=== PATIENT | female | born 1945 | race Caucasian/White ===

== ENCOUNTER 2019-05-12 10:05 | Observation (INO) ==
[~2019-05-12 10:05] MED LIST: Total Joint Mixture (50 ml) IR ONE
[2019-05-12] MEDS ORDERED: Ringers Solution, Lactated 1,000 ML IVC SCH (10:30)
[2019-05-12] MEDS ORDERED: ceFAZolin 2,000 MG in Water for inj. (sterile) 20 ML IVP ONE (10:45)
[2019-05-12] MEDS ORDERED: Acetaminophen IV 1,000 MG/100 ML INFUS..BTL IVPB ONE (11:19)
[2019-05-12] MEDS ORDERED: Ondansetron 4 MG/2 ML VIAL IVP ONE (11:39)
[2019-05-12] MEDS ORDERED: *HR* HYDROmorphone (PF) 1 MG/ML SYRINGE IVP PRN (11:39)
[2019-05-12] MEDS ORDERED: Ethanol\\Acetic Acid\\Na Ace\\Ben 1,000 ML IRRIG.SOLN IR ONE (12:38)
[2019-05-12] MEDS ORDERED: *HR* Propofol 200 MG/20 ML VIAL IVP ONE (12:42)
[2019-05-12] MEDS ORDERED: *HR* Midazolam HCl 2 MG/2 ML VIAL ONE ×2 (12:42→12:48)
[2019-05-12] MEDS ORDERED: *HR* FentaNYL (PF) 100 MCG/2 ML VIAL ONE ×2 (12:42→13:54)
[2019-05-12] MEDS ORDERED: Ondansetron 4 MG/2 ML VIAL ONE (12:44)
[2019-05-12] MEDS ORDERED: Dexamethasone 4 MG/ML VIAL ONE (12:44)
[2019-05-12] MEDS ORDERED: Lidocaine -MPF 2% 2 ML VIAL ONE (12:44)
[2019-05-12] MEDS ORDERED: Ropivacaine/PF 0.5% 30 ML VIAL ONE (12:48)
[2019-05-12] MEDS ORDERED: Sennosides 8.6 MG TABLET PO PRN (15:38)
[2019-05-12] MEDS ORDERED: Dexamethasone OPTH Drop 5 ML BOTTLE BOTH EYES PRN (15:38)
[2019-05-12] MEDS ORDERED: *HR* Promethazine 25 MG/ML VIAL IVP PRN (15:38)
[2019-05-12] MEDS ORDERED: Naloxone 0.4 MG/ML INJ IVP PRN (15:38)
[2019-05-12] MEDS ORDERED: MOM Conc 10 ML UD.LIQ PO PRN (15:38)
[2019-05-12] MEDS ORDERED: Ondansetron 4 MG/2 ML VIAL IVP PRN (15:38)
[2019-05-12] MEDS: Acetaminophen 325 MG TABLET PO PRN (15:51)
[2019-05-12] MEDS: *HR* OxyCODONE Immed Rel 5 MG TABLET PO PRN ×2 (15:51→21:34)
[2019-05-12 16:43] LABS: Hematocrit 33.7 % (35.3-44.9); Hemoglobin 11.3 g/dL (11.5-15.4)
[2019-05-12] MEDS: Ascorbic Acid 500 MG TABLET PO SCH (16:52)
[2019-05-12] MEDS: ceFAZolin 2,000 MG in 0.9 % Sodium Chloride 100 ML IVPB SCH ×2 (16:53→23:56)
[2019-05-12] MEDS: HYDROcodone BIT/Homatropine 5 MG TABLET PO PRN (17:45)
[2019-05-12] MEDS: traZODone 50 MG TABLET PO SCH (19:47)
[2019-05-12] MEDS: BuPROPion SR (12 HR) 150 MG TABLET PO SCH (19:47)
[2019-05-12] MEDS: QUEtiapine Fumarate 100 MG TABLET PO SCH (19:47)
[2019-05-12] MEDS: Ringers Solution, Lactated 1,000 ML IVC SCH (21:14)
[2019-05-13 01:31] LABS: Basophils % 0.1 %; Immature Granulocytes % 0.5 % (0-4); Lymphocytes # 0.8 K/mcL (0.6-4.6); Lymphocytes % 9.7 %; Mean Corpuscular HGB Conc 33.3 g/dL (31.6-35.5); Mean Corpuscular Hemoglobin 31.5 pg (28.0-33.3); Mean Corpuscular Volume 94.6 fL (83.0-100.0); Mean Platelet Volume 9.8 fL (9.4-12.4); Monocytes # 0.3 K/mcL (0.0-1.3); Monocytes % 3.4 %; Neutrophils # 7.2 K/mcL (1.6-8.9); Platelet Count 191 K/mcL (140-400); Red Blood Count 3.17 M/mcL (3.82-4.97); Segmented Neutrophils % 86.3 %; White Blood Count 8.3 K/mcL (4.3-11.1)
[2019-05-13 01:49] LABS: Calcium 8.2 mg/dL (8.6-10.3)
[2019-05-13] MEDS: *HR* OxyCODONE Immed Rel 5 MG TABLET PO PRN ×5 (02:49→21:55)
[2019-05-13] MEDS: HYDROcodone BIT/Homatropine 5 MG TABLET PO PRN ×4 (06:34→19:28)
[2019-05-13] MEDS: Ascorbic Acid 500 MG TABLET PO SCH ×2 (08:32→15:42)
[2019-05-13] MEDS: BuPROPion SR (12 HR) 150 MG TABLET PO SCH ×2 (08:32→20:08)
[2019-05-13] MEDS: Acetaminophen 325 MG TABLET PO PRN ×2 (08:32→14:54)
[2019-05-13] MEDS: Venlafaxine XR (24 HR) 150 MG CAP.ER.24H PO SCH (08:33)
[2019-05-13] MEDS: amLODIPine 5 MG TABLET PO SCH (08:33)
[2019-05-13] MEDS: Multivit/Ca/Min/Fe/FA 1 TAB TABLET PO SCH (08:33)
[2019-05-13] MEDS ORDERED: KRILL OIL 500 MG PO SCH (09:00)
[2019-05-13] MEDS ORDERED: NON-FORMULARY MEDICATION 1 EACH EACH (Multivit-Min/Fa/Lycopen/Lutein [Adults 50+ Multivita PO SCH (09:00)
[2019-05-13] MEDS: Fluticasone Propionate Nasal 50 MCG/SPRAY BOTTLE NS SCH (11:20)
[2019-05-13] MEDS: Aspirin Enteric Coated 81 MG Tablet PO SCH (15:43)
[2019-05-13] MEDS: QUEtiapine Fumarate 100 MG TABLET PO SCH (20:08)
[2019-05-13] MEDS: traZODone 50 MG TABLET PO SCH (20:08)
[2019-05-14 02:51] LABS: Basophils % 0.4 %; Eosinophils # 0.2 K/mcL (0.0-0.6); Eosinophils % 2.4 %; Hemoglobin 8.7 g/dL (11.5-15.4); Immature Granulocytes % 0.3 % (0-4); Lymphocytes # 2.1 K/mcL (0.6-4.6); Lymphocytes % 30.9 %; Mean Corpuscular HGB Conc 33.5 g/dL (31.6-35.5); Mean Corpuscular Hemoglobin 31.4 pg (28.0-33.3); Mean Corpuscular Volume 93.9 fL (83.0-100.0); Mean Platelet Volume 9.6 fL (9.4-12.4); Monocytes # 0.7 K/mcL (0.0-1.3); Monocytes % 10.3 %; Neutrophils # 3.7 K/mcL (1.6-8.9); Platelet Count 140 K/mcL (140-400); Red Blood Count 2.77 M/mcL (3.82-4.97); Segmented Neutrophils % 55.7 %; White Blood Count 6.7 K/mcL (4.3-11.1)
[2019-05-14 02:58] LABS: Calcium 8.1 mg/dL (8.6-10.3); Potassium 3.9 mEq/L (3.5-5.1)
[2019-05-14] MEDS: *HR* OxyCODONE Immed Rel 5 MG TABLET PO PRN ×4 (04:52→19:49)
[2019-05-14] MEDS: BuPROPion SR (12 HR) 150 MG TABLET PO SCH ×2 (07:41→19:49)
[2019-05-14] MEDS: Multivit/Ca/Min/Fe/FA 1 TAB TABLET PO SCH (07:42)
[2019-05-14] MEDS: HYDROcodone BIT/Homatropine 5 MG TABLET PO PRN ×3 (07:42→22:26)
[2019-05-14] MEDS: Venlafaxine XR (24 HR) 150 MG CAP.ER.24H PO SCH (07:42)
[2019-05-14] MEDS: Ascorbic Acid 500 MG TABLET PO SCH ×2 (07:42→15:26)
[2019-05-14] MEDS: amLODIPine 5 MG TABLET PO SCH (07:42)
[2019-05-14] MEDS: Aspirin Enteric Coated 81 MG Tablet PO SCH (07:42)
[2019-05-14] MEDS: Fluticasone Propionate Nasal 50 MCG/SPRAY BOTTLE NS SCH (11:20)
[2019-05-14] MEDS: traZODone 50 MG TABLET PO SCH (19:50)
[2019-05-14] MEDS: QUEtiapine Fumarate 100 MG TABLET PO SCH (19:50)
[2019-05-15] MEDS: *HR* OxyCODONE Immed Rel 5 MG TABLET PO PRN ×4 (03:41→23:43)
[2019-05-15 05:16] LABS: Hematocrit 27.1 % (35.3-44.9); Hemoglobin 8.8 g/dL (11.5-15.4); Mean Corpuscular HGB Conc 32.5 g/dL (31.6-35.5); Mean Corpuscular Hemoglobin 31.3 pg (28.0-33.3); Mean Corpuscular Volume 96.4 fL (83.0-100.0); Mean Platelet Volume 9.8 fL (9.4-12.4); Platelet Count 160 K/mcL (140-400); Red Blood Count 2.81 M/mcL (3.82-4.97); Red Cell Distribution Width 12.9 % (11.5-14.5); White Blood Count 7.3 K/mcL (4.3-11.1)
[2019-05-15 05:39] LABS: Calcium 8.4 mg/dL (8.6-10.3); Potassium 3.6 mEq/L (3.5-5.1)
[2019-05-15] MEDS: amLODIPine 5 MG TABLET PO SCH (07:44)
[2019-05-15] MEDS: Venlafaxine XR (24 HR) 150 MG CAP.ER.24H PO SCH (07:44)
[2019-05-15] MEDS: BuPROPion SR (12 HR) 150 MG TABLET PO SCH ×2 (07:44→20:11)
[2019-05-15] MEDS: Aspirin Enteric Coated 81 MG Tablet PO SCH (07:44)
[2019-05-15] MEDS: Ascorbic Acid 500 MG TABLET PO SCH ×2 (07:45→16:46)
[2019-05-15] MEDS: Multivit/Ca/Min/Fe/FA 1 TAB TABLET PO SCH (07:45)
[2019-05-15] MEDS: Fluticasone Propionate Nasal 50 MCG/SPRAY BOTTLE NS SCH (07:46)
[2019-05-15] MEDS: traZODone 50 MG TABLET PO SCH (20:10)
[2019-05-15] MEDS: QUEtiapine Fumarate 100 MG TABLET PO SCH (20:10)
[2019-05-15] MEDS: HYDROcodone BIT/Homatropine 5 MG TABLET PO PRN (20:10)
[2019-05-16] MEDS: Ringers Solution, Lactated 1,000 ML IVC SCH ×2 (05:54→05:55)
[2019-05-16] MEDS: Aspirin Enteric Coated 81 MG Tablet PO SCH (08:01)
[2019-05-16] MEDS: Ascorbic Acid 500 MG TABLET PO SCH ×2 (08:01→17:33)
[2019-05-16] MEDS: amLODIPine 5 MG TABLET PO SCH (08:01)
[2019-05-16] MEDS: BuPROPion SR (12 HR) 150 MG TABLET PO SCH ×2 (08:01→19:23)
[2019-05-16] MEDS: Venlafaxine XR (24 HR) 150 MG CAP.ER.24H PO SCH (08:01)
[2019-05-16] MEDS: Multivit/Ca/Min/Fe/FA 1 TAB TABLET PO SCH (08:01)
[2019-05-16] MEDS: *HR* OxyCODONE Immed Rel 5 MG TABLET PO PRN ×3 (08:01→21:18)
[2019-05-16] MEDS: Fluticasone Propionate Nasal 50 MCG/SPRAY BOTTLE NS SCH (10:12)
[2019-05-16] MEDS: QUEtiapine Fumarate 100 MG TABLET PO SCH (19:23)
[2019-05-16] MEDS: traZODone 50 MG TABLET PO SCH (19:23)
[2019-05-17 06:52] LABS: Basophils % 0.7 %; Eosinophils # 0.6 K/mcL (0.0-0.6); Eosinophils % 10.8 %; Hematocrit 25.6 % (35.3-44.9); Hemoglobin 8.6 g/dL (11.5-15.4); Immature Granulocytes % 0.4 % (0-4); Lymphocytes # 1.8 K/mcL (0.6-4.6); Lymphocytes % 32.2 %; Mean Corpuscular HGB Conc 33.6 g/dL (31.6-35.5); Mean Corpuscular Hemoglobin 31.7 pg (28.0-33.3); Mean Corpuscular Volume 94.5 fL (83.0-100.0); Mean Platelet Volume 9.4 fL (9.4-12.4); Monocytes # 0.7 K/mcL (0.0-1.3); Monocytes % 12.6 %; Neutrophils # 2.5 K/mcL (1.6-8.9); Platelet Count 200 K/mcL (140-400); Red Blood Count 2.71 M/mcL (3.82-4.97); Red Cell Distribution Width 13.1 % (11.5-14.5); Segmented Neutrophils % 43.3 %; White Blood Count 5.7 K/mcL (4.3-11.1)
[2019-05-17 07:12] LABS: Calcium 8.5 mg/dL (8.6-10.3); Potassium 3.6 mEq/L (3.5-5.1)
[2019-05-17] MEDS: Venlafaxine XR (24 HR) 150 MG CAP.ER.24H PO SCH (08:20)
[2019-05-17] MEDS: Multivit/Ca/Min/Fe/FA 1 TAB TABLET PO SCH (08:20)
[2019-05-17] MEDS: *HR* OxyCODONE Immed Rel 5 MG TABLET PO PRN ×2 (08:20→15:00)
[2019-05-17] MEDS: Aspirin Enteric Coated 81 MG Tablet PO SCH (08:20)
[2019-05-17] MEDS: amLODIPine 5 MG TABLET PO SCH (08:20)
[2019-05-17] MEDS: BuPROPion SR (12 HR) 150 MG TABLET PO SCH (08:20)
[2019-05-17] MEDS: Ascorbic Acid 500 MG TABLET PO SCH (08:20)
[2019-05-17] MEDS: Fluticasone Propionate Nasal 50 MCG/SPRAY BOTTLE NS SCH (08:23)
[2019-05-17 15:06] VITALS: BP 123/70
== END 2019-05-17 17:36 ==
LOC: 3NENU 10:05 → SAMDAY 10:05 → 3NENU 15:35
PROVIDERS: ADMIT Orthopaedic Surgery; ATTEND Orthopaedic Surgery

== ENCOUNTER 2020-01-19 00:14 | Inpatient (IN) ==
[2020-01-19] MEDS ORDERED: Naloxone 0.4 MG/ML INJ IVP PRN ×2 (03:36→19:17)
[2020-01-19] MEDS ORDERED: 0.9 % Sodium Chloride 1,000 ML IVC ONE (04:32)
[2020-01-19 04:45] LABS: Basophils % 0.4 %; Eosinophils % 0.1 %; Hemoglobin 12.4 g/dL (11.5-15.4); Immature Granulocytes % 0.5 % (0-4); Lymphocytes # 0.9 K/mcL (0.6-4.6); Lymphocytes % 10.5 %; Mean Corpuscular HGB Conc 32.6 g/dL (31.6-35.5); Mean Corpuscular Hemoglobin 30.8 pg (28.0-33.3); Mean Corpuscular Volume 94.5 fL (83.0-100.0); Mean Platelet Volume 9.9 fL (9.4-12.4); Monocytes # 0.4 K/mcL (0.0-1.3); Monocytes % 4.4 %; Neutrophils # 6.8 K/mcL (1.6-8.9); Platelet Count 175 K/mcL (140-400); Red Blood Count 4.02 M/mcL (3.82-4.97); Red Cell Distribution Width 13.1 % (11.5-14.5); Segmented Neutrophils % 84.1 %; White Blood Count 8.1 K/mcL (4.3-11.1)
[2020-01-19 05:04] LABS: INR 1.1; Prothrombin Time 12.5 Seconds (9.4-12.1)
[2020-01-19 05:05] LABS: Albumin 4.3 g/dL (3.5-5.7); Albumin/Globulin Ratio 1.7 (1.1-2.2); Bilirubin,Total 0.6 mg/dL (0.3-1.0); Calcium 9.5 mg/dL (8.6-10.3); Chol/HDL Ratio 2.8 (0-4.9); Globulin 2.5 g/dL (2.4-3.5); Magnesium 1.9 mg/dL (1.6-2.6); Phosphorous 4.4 mg/dL (2.7-4.5); Potassium 4.1 mEq/L (3.5-5.1); Total Protein 6.8 g/dL (6.4-8.9)
[2020-01-19] MEDS ORDERED: Ondansetron 4 MG/2 ML VIAL IVP PRN ×2 (05:45→19:17)
[2020-01-19] MEDS ORDERED: *HR* Dextrose 50 % in Water (Vial) 50 ML VIAL IVP PRN ×2 (05:46→19:17)
[2020-01-19] MEDS ORDERED: Dextrose Gel 15 GM/37.5 ML TUBE PO PRN ×4 (05:46→19:17)
[2020-01-19] MEDS ORDERED: D5% in Water 1,000 ML IVC PRN ×2 (05:46→19:17)
[2020-01-19] MEDS: Insulin LISPRO 300 UNITS/3 ML VIAL SQ SCH ×3 (06:39→20:17)
[2020-01-19] MEDS: *HR* Heparin 5,000 UNIT/ML VIAL SQ SCH ×2 (06:39→20:17)
[2020-01-19 08:08] LABS: Estimated Average Glucose 117 mg/dl
[2020-01-19] MEDS ORDERED: metroNIDAZOLE 500 MG TABLET PO ONE (08:33)
[2020-01-19] MEDS: metroNIDAZOLE 500 MG TABLET PO SCH ×2 (09:49→13:27)
[2020-01-19] MEDS ORDERED: Morphine Sulfate 2 MG/ML SYRINGE IVP PRN ×2 (13:55→19:17)
[2020-01-19] MEDS ORDERED: 0.9 % Sodium Chloride 1,000 ML IVC SCH ×2 (14:15→19:17)
[2020-01-19] MEDS ORDERED: Fluticasone Propionate Nasal 50 MCG/SPRAY BOTTLE NS PRN ×2 (14:16→19:17)
[2020-01-19] MEDS ORDERED: Pantoprazole 40 MG VIAL IVP SCH (14:30)
[2020-01-19] MEDS ORDERED: MetroNIDAZOLE 500 MG/100 ML 500 MG/100 ML BAG IVPB SCH (16:00)
[2020-01-19] MEDS ORDERED: CefOXitin 1,000 MG VIAL ONE (16:05)
[2020-01-19] MEDS ORDERED: Dexamethasone 4 MG/ML VIAL ONE (16:07)
[2020-01-19] MEDS ORDERED: Ondansetron 4 MG/2 ML VIAL ONE (16:07)
[2020-01-19] MEDS ORDERED: *HR* Rocuronium Bromide 50 MG/5 ML VIAL ONE (16:07)
[2020-01-19] MEDS ORDERED: Lidocaine -MPF 2% 2 ML VIAL ONE (16:07)
[2020-01-19] MEDS ORDERED: Lidocaine HCL 4 ML Topical Solution (Laryng-O-Jet Kit Sterile Pak) TP ONE (16:08)
[2020-01-19] MEDS ORDERED: *HR* FentaNYL (PF) 100 MCG/2 ML VIAL ONE (16:08)
[2020-01-19] MEDS ORDERED: *HR* Propofol 200 MG/20 ML VIAL IVP ONE (16:08)
[2020-01-19] MEDS ORDERED: *HR* HYDROMORPHONE 2 MG/ML VIAL ONE (17:53)
[2020-01-19] MEDS ORDERED: *HR* Promethazine 25 MG/ML VIAL IVP PRN (18:15)
[2020-01-19] MEDS ORDERED: *HR* HYDROmorphone (PF) 1 MG/ML SYRINGE ONE (18:17)
[2020-01-19] MEDS: *HR* HYDROmorphone (PF) 1 MG/ML SYRINGE IVP PRN ×3 (18:18→18:38)
[2020-01-19] MEDS ORDERED: *HR* Labetalol 20 MG/4 ML SYRINGE IVP ONE (18:32)
[2020-01-19] MEDS: *HR* Labetalol 20 MG/4 ML SYRINGE IVP PRN ×2 (18:33→18:53)
[2020-01-19] MEDS ORDERED: Ringers Solution, Lactated 1,000 ML ONE (18:34)
[2020-01-19] MEDS ORDERED: Chloraseptic Spray 177 ML BOTTLE MM PRN (23:51)
[2020-01-20] MEDS: Insulin LISPRO 300 UNITS/3 ML VIAL SQ SCH ×5 (00:22→23:55)
[2020-01-20] MEDS: *HR* Heparin 5,000 UNIT/ML VIAL SQ SCH ×2 (06:07→18:03)
[2020-01-20 07:22] LABS: Basophils % 0.2 %; Hemoglobin 11.5 g/dL (11.5-15.4); Immature Granulocytes % 0.4 % (0-4); Lymphocytes # 1.5 K/mcL (0.6-4.6); Lymphocytes % 12.5 %; Mean Corpuscular HGB Conc 31.9 g/dL (31.6-35.5); Mean Platelet Volume 9.5 fL (9.4-12.4); Monocytes # 1.1 K/mcL (0.0-1.3); Monocytes % 9.1 %; Neutrophils # 9.3 K/mcL (1.6-8.9); Platelet Count 175 K/mcL (140-400); Red Blood Count 3.83 M/mcL (3.82-4.97); Red Cell Distribution Width 13.3 % (11.5-14.5); Segmented Neutrophils % 77.8 %
[2020-01-20 07:40] LABS: Calcium 8.6 mg/dL (8.6-10.3); Potassium 3.6 mEq/L (3.5-5.1)
[2020-01-20] MEDS ORDERED: Acetaminophen IV 1,000 MG/100 ML INFUS..BTL IVPB ONE (07:57)
[2020-01-20] MEDS: ceFAZolin 1,000 MG in Water for inj. (sterile) 10 ML IVP SCH ×2 (08:05→16:45)
[2020-01-20] MEDS: Pantoprazole 40 MG VIAL IVP SCH (08:06)
[2020-01-20] MEDS ORDERED: Dexamethasone OPTH Drop 5 ML BOTTLE BOTH EARS SCH ×2 (09:00)
[2020-01-20] MEDS ORDERED: 0.9 % Sodium Chloride 1,000 ML IVC SCH (11:45)
[2020-01-20] MEDS: Dexamethasone OPTH Drop 5 ML BOTTLE BOTH EYES SCH (12:34)
[2020-01-21] MEDS ORDERED: 0.9 % Sodium Chloride 1,000 ML IVC SCH (01:15)
[2020-01-21] MEDS ORDERED: Acetaminophen IV 1,000 MG/100 ML INFUS..BTL IVPB PRN (01:16)
[2020-01-21 02:55] LABS: Basophils # 0.1 K/mcL (0.0-0.2); Basophils % 0.7 %; Eosinophils # 0.1 K/mcL (0.0-0.6); Eosinophils % 0.8 %; Hematocrit 41.1 % (35.3-44.9); Hemoglobin 13.2 g/dL (11.5-15.4); Immature Granulocytes % 0.2 % (0-4); Lymphocytes # 2.5 K/mcL (0.6-4.6); Lymphocytes % 29.7 %; Mean Corpuscular HGB Conc 32.1 g/dL (31.6-35.5); Mean Corpuscular Hemoglobin 30.6 pg (28.0-33.3); Mean Corpuscular Volume 95.4 fL (83.0-100.0); Mean Platelet Volume 9.7 fL (9.4-12.4); Monocytes % 11.4 %; Neutrophils # 4.8 K/mcL (1.6-8.9); Platelet Count 180 K/mcL (140-400); Red Blood Count 4.31 M/mcL (3.82-4.97); Red Cell Distribution Width 13.1 % (11.5-14.5); Segmented Neutrophils % 57.2 %; White Blood Count 8.4 K/mcL (4.3-11.1)
[2020-01-21 03:15] LABS: BUN/Creatinine Ratio 17 (6-26); Blood Urea Nitrogen 15 mg/dL (8-23); Calcium 8.8 mg/dL (8.6-10.3); Carbon Dioxide 24 mEq/L (23-29); Chloride 102 mEq/L (98-107); Glucose 105 mg/dL (70-105); Osmolality,Calculated 285 (280-300); Potassium 3.2 mEq/L (3.5-5.1); Sodium 137 mEq/L (136-145); eGFR For African Americans > 60 (> 60); eGFR For Non-African Americans > 60 (> 60)
[2020-01-21] MEDS: Insulin LISPRO 300 UNITS/3 ML VIAL SQ SCH ×4 (06:08→23:34)
[2020-01-21] MEDS: *HR* Heparin 5,000 UNIT/ML VIAL SQ SCH ×2 (06:17→18:01)
[2020-01-21] MEDS: Pantoprazole 40 MG VIAL IVP SCH (07:51)
[2020-01-21] MEDS: Dexamethasone OPTH Drop 5 ML BOTTLE BOTH EYES SCH (07:54)
[2020-01-21] MEDS ORDERED: Potassium Chloride 20 MEQ, Lidocaine 1% 2 ML in 0.9 % Sodium Chloride 250 ML IVPB ONE (23:59)
[2020-01-22 04:56] LABS: Basophils # 0.1 K/mcL (0.0-0.2); Basophils % 0.6 %; Eosinophils # 0.2 K/mcL (0.0-0.6); Eosinophils % 1.8 %; Hemoglobin 13.4 g/dL (11.5-15.4); Immature Granulocytes % 0.5 % (0-4); Lymphocytes # 2.1 K/mcL (0.6-4.6); Lymphocytes % 24.9 %; Mean Corpuscular HGB Conc 33.5 g/dL (31.6-35.5); Mean Corpuscular Hemoglobin 31.5 pg (28.0-33.3); Mean Corpuscular Volume 94.1 fL (83.0-100.0); Neutrophils # 5.1 K/mcL (1.6-8.9); Platelet Count 172 K/mcL (140-400); Red Blood Count 4.25 M/mcL (3.82-4.97); Red Cell Distribution Width 12.5 % (11.5-14.5); Segmented Neutrophils % 60.2 %; White Blood Count 8.4 K/mcL (4.3-11.1)
[2020-01-22 05:18] LABS: BUN/Creatinine Ratio 22 (6-26); Blood Urea Nitrogen 20 mg/dL (8-23); Calcium 9.2 mg/dL (8.6-10.3); Carbon Dioxide 22 mEq/L (23-29); Chloride 101 mEq/L (98-107); Glucose 96 mg/dL (70-105); Osmolality,Calculated 284 (280-300); Potassium 3.7 mEq/L (3.5-5.1); Sodium 136 mEq/L (136-145); eGFR For African Americans > 60 (> 60); eGFR For Non-African Americans 60 (> 60)
[2020-01-22] MEDS: *HR* Heparin 5,000 UNIT/ML VIAL SQ SCH ×2 (06:15→18:20)
[2020-01-22] MEDS: Insulin LISPRO 300 UNITS/3 ML VIAL SQ SCH ×3 (06:15→18:01)
[2020-01-22] MEDS: Pantoprazole 40 MG VIAL IVP SCH (10:13)
[2020-01-22] MEDS: Dexamethasone OPTH Drop 5 ML BOTTLE BOTH EYES SCH (10:14)
[2020-01-22] MEDS ORDERED: *HR* Metoprolol 5 MG/5 ML VIAL IVP ONE (19:06)
[2020-01-23] MEDS: Insulin LISPRO 300 UNITS/3 ML VIAL SQ SCH ×4 (00:32→16:33)
[2020-01-23] MEDS: *HR* Heparin 5,000 UNIT/ML VIAL SQ SCH ×2 (06:26→16:42)
[2020-01-23 07:11] LABS: Basophils # 0.1 K/mcL (0.0-0.2); Basophils % 0.7 %; Eosinophils # 0.4 K/mcL (0.0-0.6); Eosinophils % 4.7 %; Hematocrit 39.9 % (35.3-44.9); Hemoglobin 13.5 g/dL (11.5-15.4); Immature Granulocytes % 0.4 % (0-4); Lymphocytes # 2.5 K/mcL (0.6-4.6); Lymphocytes % 29.6 %; Mean Corpuscular HGB Conc 33.8 g/dL (31.6-35.5); Mean Corpuscular Hemoglobin 30.9 pg (28.0-33.3); Mean Corpuscular Volume 91.3 fL (83.0-100.0); Monocytes % 12.4 %; Neutrophils # 4.4 K/mcL (1.6-8.9); Platelet Count 235 K/mcL (140-400); Red Blood Count 4.37 M/mcL (3.82-4.97); Red Cell Distribution Width 12.7 % (11.5-14.5); Segmented Neutrophils % 52.2 %; White Blood Count 8.4 K/mcL (4.3-11.1)
[2020-01-23 07:30] LABS: BUN/Creatinine Ratio 27 (6-26); Blood Urea Nitrogen 26 mg/dL (8-23); Calcium 9.2 mg/dL (8.6-10.3); Carbon Dioxide 26 mEq/L (23-29); Chloride 100 mEq/L (98-107); Glucose 128 mg/dL (70-105); Osmolality,Calculated 288 (280-300); Potassium 3.1 mEq/L (3.5-5.1); Sodium 136 mEq/L (136-145); eGFR For African Americans > 60 (> 60); eGFR For Non-African Americans 57 (> 60)
[2020-01-23] MEDS ORDERED: *HR* OxyCODONE/APAP 5/325 TABLET PO PRN (08:41)
[2020-01-23] MEDS ORDERED: Acetaminophen 325 MG TABLET PO PRN (08:41)
[2020-01-23] MEDS: Dexamethasone OPTH Drop 5 ML BOTTLE BOTH EYES SCH (10:55)
[2020-01-24] MEDS: Insulin LISPRO 300 UNITS/3 ML VIAL SQ SCH (00:39)
[2020-01-24] MEDS: *HR* Heparin 5,000 UNIT/ML VIAL SQ SCH (06:58)
[2020-01-24 07:04] VITALS: BP 121/86
[2020-01-24] MEDS ORDERED: Insulin LISPRO 300 UNITS/3 ML VIAL SQ SCH (07:30)
[2020-01-24] MEDS: Dexamethasone OPTH Drop 5 ML BOTTLE BOTH EYES SCH (09:27)
== END 2020-01-24 12:06 | disposition home health service (06) | DRG 335 ==
LOC: 3ANU → SUATTDRO 12:34
PROVIDERS: ADMIT Internal Medicine; ATTEND Pharmacist

== ENCOUNTER 2021-08-29 01:08 | Inpatient (IN) ==
[~2021-08-29 01:08] MED LIST changes: +Acetaminophen 325 MG TABLET PO PRN; +Melatonin 3 MG TABLET PO PRN; +Naloxone 0.4 MG/ML INJ IVP PRN; +Ondansetron 4 MG/2 ML VIAL IVP PRN; -Total Joint Mixture (50 ml) IR ONE
[2021-08-29] MEDS ORDERED: D5% in Water 1,000 ML IVC PRN ×2 (01:13→17:53)
[2021-08-29] MEDS ORDERED: *HR* Dextrose 50 % in Water (Syg) 50 ML SYRINGE IVP PRN ×2 (01:13→17:53)
[2021-08-29] MEDS ORDERED: Dextrose 4 GM Chewable Tablets PO PRN ×4 (01:13→17:53)
[2021-08-29] MEDS ORDERED: *HR* FentaNYL (PF) 100 MCG/2 ML VIAL IVP ONE (01:14)
[2021-08-29 02:02] LABS: Basophils # 0.1 K/mcL (0.0-0.2); Basophils % 0.6 %; Eosinophils % 0.3 %; Hematocrit 27.8 % (35.3-44.9); Hemoglobin 9.3 g/dL (11.5-15.4); Immature Granulocytes % 0.6 % (0-4); Lymphocytes # 2.8 K/mcL (0.6-4.6); Lymphocytes % 31.6 %; Mean Corpuscular HGB Conc 33.5 g/dL (31.6-35.5); Mean Corpuscular Hemoglobin 31.5 pg (28.0-33.3); Mean Corpuscular Volume 94.2 fL (83.0-100.0); Mean Platelet Volume 9.3 fL (9.4-12.4); Monocytes # 0.8 K/mcL (0.0-1.3); Monocytes % 9.4 %; Neutrophils # 5.2 K/mcL (1.6-8.9); Platelet Count 167 K/mcL (140-400); Red Blood Count 2.95 M/mcL (3.82-4.97); Red Cell Distribution Width 12.9 % (11.5-14.5); Segmented Neutrophils % 57.5 %
[2021-08-29 02:09] LABS: INR 1.2; Prothrombin Time 13.4 Seconds (9.4-12.1)
[2021-08-29 02:12] LABS: Activated Partial Thrombo Time 30.5 Seconds (26.0-36.0)
[2021-08-29] MEDS: 0.9 % Sodium Chloride 1,000 ML IVC SCH (02:22)
[2021-08-29 02:24] LABS: Albumin 3.5 g/dL (3.5-5.7); Albumin/Globulin Ratio 1.8 (1.1-2.2); Bilirubin,Total 0.5 mg/dL (0.3-1.0); Magnesium 1.9 mg/dL (1.6-2.6); Phosphorous 3.1 mg/dL (2.7-4.5); Potassium 3.8 mEq/L (3.5-5.1); Total Protein 5.5 g/dL (6.4-8.9)
[2021-08-29] MEDS ORDERED: Saliva Stimulant 44.3ml BOTTLE PO PRN ×2 (04:58→17:53)
[2021-08-29] MEDS ORDERED: *HR* HYDROmorphone (PF) 1 MG/ML SYRINGE IVP ONE ×2 (08:24→12:19)
[2021-08-29 08:39] LABS: Bilirubin,Urine Negative (Negative); Blood,Urine Negative (Negative); Clarity,Urine Clear (Clear); Color,Urine Light-Yellow (Yellow); Glucose,Urine (UA) Normal (Normal); Ketones,Urine Negative (Negative); Leukocyte Esterase,Urine Negative (Negative); Nitrite,Urine Negative (Negative); PH,Urine 5.5 pH Units (5.0-8.0); Protein,Urine Trace mg/dL (Neg-Trace); Specific Gravity,Urine 1.023 (1.010-1.025); Urobilinogen,Urine Normal (Normal)
[2021-08-29] MEDS ORDERED: Chlorhexidine Rinse 15 ML MOUTHWASH MM SCH (09:00)
[2021-08-29] MEDS ORDERED: BuPROPion SR (12 HR) 150 MG TABLET PO SCH (09:00)
[2021-08-29] MEDS ORDERED: Multivit/Ca/Min/Fe/FA 1 TAB TABLET PO SCH (09:00)
[2021-08-29] MEDS ORDERED: Venlafaxine XR (24 HR) 150 MG CAP.ER.24H PO SCH (09:00)
[2021-08-29] MEDS ORDERED: *HR* Propofol 200 MG/20 ML VIAL IVP ONE (12:39)
[2021-08-29] MEDS ORDERED: *HR* FentaNYL (PF) 100 MCG/2 ML VIAL ONE (12:39)
[2021-08-29] MEDS ORDERED: Lidocaine -MPF 2% 2 ML VIAL ONE (12:40)
[2021-08-29] MEDS ORDERED: *HR* Succinylcholine 200 MG/10 ML VIAL IVP ONE (12:40)
[2021-08-29] MEDS ORDERED: Ondansetron 4 MG/2 ML VIAL ONE (15:14)
[2021-08-29] MEDS ORDERED: Albumin Human 5% 12.5 GM/250 ML IV.SOLN ONE (16:16)
[2021-08-29] MEDS ORDERED: Ondansetron 4 MG/2 ML VIAL IVP PRN ×2 (17:02→17:53)
[2021-08-29] MEDS ORDERED: *HR* Metoprolol 5 MG/5 ML VIAL IVP PRN (17:02)
[2021-08-29] MEDS ORDERED: *HR* Meperidine 25 MG/ML SYRINGE IVP PRN (17:02)
[2021-08-29] MEDS: *HR* FentaNYL (PF) 100 MCG/2 ML VIAL IVP PRN ×2 (17:10→17:18)
[2021-08-29] MEDS: *HR* HYDROmorphone PF 0.5 MG/0.5 ML SYRINGE IVP PRN ×2 (17:28→17:33)
[2021-08-29] MEDS ORDERED: *HR* HYDROmorphone PF 0.5 MG/0.5 ML SYRINGE IVP PRN (17:32)
[2021-08-29] MEDS ORDERED: 0.9 % Sodium Chloride 1,000 ML IVC SCH (17:53)
[2021-08-29] MEDS ORDERED: Naloxone 0.4 MG/ML INJ IVP PRN (17:53)
[2021-08-29] MEDS ORDERED: Melatonin 3 MG TABLET PO PRN (17:53)
[2021-08-29] MEDS: BuPROPion SR (12 HR) 150 MG TABLET PO SCH (20:12)
[2021-08-29] MEDS: Chlorhexidine Rinse 15 ML MOUTHWASH MM SCH (20:12)
[2021-08-29] MEDS: QUEtiapine Fumarate 100 MG TABLET PO SCH (20:12)
[2021-08-29] MEDS: traZODone 50 MG TABLET PO SCH (20:13)
[2021-08-29] MEDS ORDERED: traZODone 50 MG TABLET PO SCH (21:00)
[2021-08-29] MEDS ORDERED: QUEtiapine Fumarate 100 MG TABLET PO SCH (21:00)
[2021-08-29] MEDS ORDERED: CeFAZolin 2 GM/120 ML BAG IVPB SCH (23:00)
[2021-08-29 23:05] LABS: Hematocrit 20.5 % (35.3-44.9)
[2021-08-29 23:07] LABS: Hemoglobin 6.7 g/dL (11.5-15.4)
[2021-08-29] MEDS: CeFAZolin 2 GM/120 ML BAG IVPB SCH (23:46)
[2021-08-30] MEDS: Acetaminophen 325 MG TABLET PO PRN ×3 (04:58→17:57)
[2021-08-30 06:47] LABS: % Iron Saturation 5 % (15-50); Iron 12 mcg/dL (50-170); Transferrin 163 mg/dL (203-362)
[2021-08-30 06:56] LABS: Ferritin 60 ng/mL (10-120)
[2021-08-30 07:01] LABS: Folate 12.1 ng/mL (3.0-16.0)
[2021-08-30] MEDS: 0.9 % Sodium Chloride 1,000 ML IVC SCH (07:37)
[2021-08-30] MEDS ORDERED: *HR* Heparin 5,000 UNIT/ML VIAL SQ SCH (08:00)
[2021-08-30] MEDS: Multivit/Ca/Min/Fe/FA 1 TAB TABLET PO SCH (08:01)
[2021-08-30] MEDS: BuPROPion SR (12 HR) 150 MG TABLET PO SCH ×2 (08:01→20:37)
[2021-08-30] MEDS: Aspirin Enteric Coated 325 MG Tablet PO SCH (08:01)
[2021-08-30] MEDS: Chlorhexidine Rinse 15 ML MOUTHWASH MM SCH ×2 (08:02→20:38)
[2021-08-30] MEDS: Venlafaxine XR (24 HR) 150 MG CAP.ER.24H PO SCH (08:02)
[2021-08-30] MEDS: Cyanocobalamin (B-12) 1,000 MCG/ML VIAL SQ SCH (08:45)
[2021-08-30] MEDS: allopurinoL 100 MG TABLET PO SCH (08:45)
[2021-08-30] MEDS: CeFAZolin 2 GM/120 ML BAG IVPB SCH (08:45)
[2021-08-30] MEDS ORDERED: Aspirin Enteric Coated 325 MG Tablet PO SCH (09:00)
[2021-08-30 09:50] LABS: Basophils % 0.2 %; Eosinophils % 0.2 %; Hematocrit 18.2 % (35.3-44.9); Lymphocytes # 1.8 K/mcL (0.6-4.6); Lymphocytes % 31.5 %; Mean Corpuscular Hemoglobin 31.7 pg (28.0-33.3); Mean Corpuscular Volume 96.3 fL (83.0-100.0); Monocytes # 0.9 K/mcL (0.0-1.3); Monocytes % 15.9 %; Neutrophils # 2.9 K/mcL (1.6-8.9); Platelet Count 102 K/mcL (140-400); Red Blood Count 1.89 M/mcL (3.82-4.97); Red Cell Distribution Width 13.2 % (11.5-14.5); Segmented Neutrophils % 52.2 %; White Blood Count 5.6 K/mcL (4.3-11.1)
[2021-08-30 10:09] LABS: Calcium 7.7 mg/dL (8.6-10.3); Potassium 4.2 mEq/L (3.5-5.1)
[2021-08-30] MEDS ORDERED: 0.9 % Sodium Chloride 500 ML ONE (10:35)
[2021-08-30 17:22] LABS: Hematocrit 21.8 % (35.3-44.9); Hemoglobin 7.2 g/dL (11.5-15.4)
[2021-08-30] MEDS: traZODone 50 MG TABLET PO SCH (20:37)
[2021-08-30] MEDS: QUEtiapine Fumarate 100 MG TABLET PO SCH (20:37)
[2021-08-31 06:49] LABS: Hematocrit 20.9 % (35.3-44.9); Hemoglobin 6.9 g/dL (11.5-15.4); Mean Corpuscular Hemoglobin 30.7 pg (28.0-33.3); Mean Corpuscular Volume 92.9 fL (83.0-100.0); Mean Platelet Volume 9.7 fL (9.4-12.4); Platelet Count 117 K/mcL (140-400); Red Blood Count 2.25 M/mcL (3.82-4.97); Red Cell Distribution Width 15.4 % (11.5-14.5); White Blood Count 5.6 K/mcL (4.3-11.1)
[2021-08-31 07:13] LABS: Calcium 7.9 mg/dL (8.6-10.3); Potassium 4.1 mEq/L (3.5-5.1)
[2021-08-31] MEDS: Venlafaxine XR (24 HR) 150 MG CAP.ER.24H PO SCH (08:50)
[2021-08-31] MEDS: Multivit/Ca/Min/Fe/FA 1 TAB TABLET PO SCH (08:50)
[2021-08-31] MEDS: Aspirin Enteric Coated 325 MG Tablet PO SCH (08:50)
[2021-08-31] MEDS: BuPROPion SR (12 HR) 150 MG TABLET PO SCH ×2 (08:50→21:07)
[2021-08-31] MEDS: allopurinoL 100 MG TABLET PO SCH (08:50)
[2021-08-31] MEDS: Chlorhexidine Rinse 15 ML MOUTHWASH MM SCH ×2 (08:50→21:07)
[2021-08-31] MEDS: Cyanocobalamin (B-12) 1,000 MCG/ML VIAL SQ SCH (08:50)
[2021-08-31] MEDS ORDERED: 0.9 % Sodium Chloride 500 ML ONE (09:40)
[2021-08-31] MEDS: Acetaminophen 325 MG TABLET PO PRN (11:47)
[2021-08-31 17:02] LABS: Hemoglobin 8.6 g/dL (11.5-15.4)
[2021-08-31] MEDS: traZODone 50 MG TABLET PO SCH (21:07)
[2021-08-31] MEDS: QUEtiapine Fumarate 100 MG TABLET PO SCH (21:08)
[2021-09-01 06:18] LABS: Hematocrit 25.5 % (35.3-44.9); Hemoglobin 8.4 g/dL (11.5-15.4); Mean Corpuscular HGB Conc 32.9 g/dL (31.6-35.5); Mean Corpuscular Hemoglobin 30.4 pg (28.0-33.3); Mean Corpuscular Volume 92.4 fL (83.0-100.0); Mean Platelet Volume 10.1 fL (9.4-12.4); Platelet Count 149 K/mcL (140-400); Red Blood Count 2.76 M/mcL (3.82-4.97); Red Cell Distribution Width 15.5 % (11.5-14.5); White Blood Count 5.2 K/mcL (4.3-11.1)
[2021-09-01 06:28] LABS: Calcium 7.9 mg/dL (8.6-10.3); Potassium 4.1 mEq/L (3.5-5.1)
[2021-09-01] MEDS: Venlafaxine XR (24 HR) 150 MG CAP.ER.24H PO SCH (09:17)
[2021-09-01] MEDS: Aspirin Enteric Coated 325 MG Tablet PO SCH (09:17)
[2021-09-01] MEDS: Cyanocobalamin (B-12) 1,000 MCG/ML VIAL SQ SCH (09:18)
[2021-09-01] MEDS: Chlorhexidine Rinse 15 ML MOUTHWASH MM SCH ×2 (09:18→19:33)
[2021-09-01] MEDS: BuPROPion SR (12 HR) 150 MG TABLET PO SCH ×2 (09:18→19:33)
[2021-09-01] MEDS: allopurinoL 100 MG TABLET PO SCH (09:18)
[2021-09-01] MEDS: Multivit/Ca/Min/Fe/FA 1 TAB TABLET PO SCH (09:18)
[2021-09-01] MEDS: traZODone 50 MG TABLET PO SCH (19:33)
[2021-09-01] MEDS: QUEtiapine Fumarate 100 MG TABLET PO SCH (19:33)
[2021-09-02] MEDS: Multivit/Ca/Min/Fe/FA 1 TAB TABLET PO SCH (09:25)
[2021-09-02] MEDS: Aspirin Enteric Coated 325 MG Tablet PO SCH (09:26)
[2021-09-02] MEDS: allopurinoL 100 MG TABLET PO SCH (09:26)
[2021-09-02] MEDS: Venlafaxine XR (24 HR) 150 MG CAP.ER.24H PO SCH (09:26)
[2021-09-02] MEDS: Cyanocobalamin (B-12) 1,000 MCG/ML VIAL SQ SCH (09:26)
[2021-09-02] MEDS: Chlorhexidine Rinse 15 ML MOUTHWASH MM SCH ×2 (09:26→20:13)
[2021-09-02] MEDS: BuPROPion SR (12 HR) 150 MG TABLET PO SCH ×2 (09:26→20:13)
[2021-09-02] MEDS: QUEtiapine Fumarate 100 MG TABLET PO SCH (20:13)
[2021-09-02] MEDS: traZODone 50 MG TABLET PO SCH (20:13)
[2021-09-03] MEDS: Multivit/Ca/Min/Fe/FA 1 TAB TABLET PO SCH (08:48)
[2021-09-03] MEDS: Chlorhexidine Rinse 15 ML MOUTHWASH MM SCH (08:48)
[2021-09-03] MEDS: Aspirin Enteric Coated 325 MG Tablet PO SCH (08:48)
[2021-09-03] MEDS: allopurinoL 100 MG TABLET PO SCH (08:48)
[2021-09-03] MEDS: Venlafaxine XR (24 HR) 150 MG CAP.ER.24H PO SCH (08:48)
[2021-09-03] MEDS: BuPROPion SR (12 HR) 150 MG TABLET PO SCH (08:48)
[2021-09-03 15:28] VITALS: BP 110/64; PULSE 106; TEMP 98; O2SAT 98
[2021-09-03 17:49] LABS: Influenza A PCR Negative (Negative); Influenza B PCR Negative (Negative); Resp. Syncytial Virus PCR Negative (Negative)
[2021-09-03 17:52] LABS: SARS-CoV-2 by PCR (In House) Negative (Negative)
[2021-09-04] MEDS ORDERED: Cyanocobalamin (B-12) 1,000 MCG TABLET PO SCH (09:00)
[2021-09-04] MEDS ORDERED: Cholecalciferol (D-3) 1,000 UNIT (25MCG) TABLET PO SCH (09:00)
== END 2021-09-03 19:38 | DRG 480 ==
LOC: 3ANU → SUATTDRO 01:08 → 4WAOSI 15:06
PROVIDERS: ADMIT Internal Medicine; ATTEND Internal Medicine